=== PATIENT | female | born 1945 | race Caucasian/White ===

== ENCOUNTER → 2024-12-19 11:55 | Outpatient (REF) | payer MEDICARE, OTHER, SELFPAY ==
[2024-12-19 13:01] LABS: Hematocrit 35.9 % (37.0-47.0); Hemoglobin 12.1 g/dL (12.0-16.0); Mean Corp Hgb Conc. 33.7 g/dL (33.0-37.0); Mean Corpuscular Volume 89.1 fL (81.0-99.0); Platelet Count 193 10^3/uL (130-400); Red Blood Cell Count 4.03 10^6/uL (4.20-5.40); Red Cell Dist. Width 14.4 % (11.5-14.5); White Blood Cell Count 6.7 10^3/uL (4.8-10.8)
[2024-12-19 13:33] LABS: Urine Albumin Negative (Neg - Trace); Urine Bilirubin Negative (Negative); Urine Character Clear (Clear); Urine Color Yellow; Urine Glucose Negative (Negative); Urine Ketone Negative (Negative); Urine Leukocyte 3+ (Negative); Urine Nitrite Negative (Negative); Urine Occult Blood Negative (Negative); Urine Specific Gravity 1.015 (<1.030); Urine Urobilinogen Negative (Neg - 1+)
[2024-12-19 13:48] LABS: ALT (SGPT) 14 U/L (0-35); AST (SGOT) 19 U/L (14-36); Albumin 4.5 g/dl (3.5-5.0); Alkaline Phosphatase 81 U/L (38-126); Blood Urea Nitrogen 29 mg/dl (7-17); Calcium 9.5 mg/dl (8.4-10.2); Carbon Dioxide 28 mmol/L (22-30); Chloride 108 mmol/L (98-107); Glucose 102 mg/dl (70-99); HDL Cholesterol 62 mg/dl; LDL Cholesterol, Calculated 97 mg/dl; Potassium 4.6 mmol/L (3.5-5.1); Sodium 142 mmol/L (135-145); Total Bilirubin 0.6 mg/dl (0.2-1.3); Total Cholesterol 181 mg/dl (50-199); Total Protein 6.9 g/dl (6.3-8.2); Triglyceride 114 mg/dl (10-149); Very Low Density Lipoprotein 22 mg/dl (0-30)
[2024-12-19 14:18] LABS: TSH Reflex To Free T4 < 0.02 uIU/ml (0.47-4.68)
[2024-12-19 14:47] LABS: Free T4 2.58 ng/dl (0.78-2.19); Urine Squamous Cell 16-20 /LPF (Few); Urine Urothelial Cell 0-2 /LPF (FEW)
[2024-12-19 14:48] LABS: Urine Amorphous Seen; Urine Red Blood Cell 0-2 /HPF (0-2)
== END ==
LOC: RAD 11:55
PROVIDERS: ATTENDING PHYSICIAN Physician Assistant
DX: M25.511 Pain in right shoulder (principal); M25.512 Pain in left shoulder; M79.644 Pain in right finger(s); Z00.00 Encounter for general adult medical examination without abnormal findings; N18.9 Chronic kidney disease, unspecified; I48.0 Paroxysmal atrial fibrillation; E03.9 Hypothyroidism, unspecified; Z13.220 Encounter for screening for lipoid disorders
CPT/HCPCS: 36415; 73030; 73130; 80053; 80061; 81003; 81015; 84439; 84443; 85027

== ENCOUNTER → 2025-01-14 14:46 | Outpatient (REF) | payer MEDICARE, OTHER, SELFPAY ==
[2025-01-14 16:58] LABS: Free T4 2.66 ng/dl (0.78-2.19)
[2025-01-14 17:12] LABS: TSH < 0.02 uIU/ml (0.47-4.68)
== END ==
LOC: REG 14:46
PROVIDERS: ATTENDING PHYSICIAN Physician Assistant
DX: E03.9 Hypothyroidism, unspecified (principal)
CPT/HCPCS: 36415; 84439; 84443

== ENCOUNTER → 2025-02-05 13:15 | Outpatient (REF) | payer MEDICARE, OTHER, SELFPAY ==
[2025-02-05 15:14] LABS: TSH < 0.02 uIU/ml (0.47-4.68)
== END ==
LOC: REG 13:15
PROVIDERS: ATTENDING PHYSICIAN Physician Assistant
DX: E03.9 Hypothyroidism, unspecified (principal)
CPT/HCPCS: 36415; 84439; 84443

== ENCOUNTER → 2025-02-27 13:55 | Outpatient (REF) | payer MEDICARE, OTHER, SELFPAY ==
[2025-02-27 16:20] LABS: TSH 0.37 uIU/ml (0.47-4.68)
== END ==
LOC: REG 13:55
PROVIDERS: ATTENDING PHYSICIAN Physician Assistant
DX: E03.9 Hypothyroidism, unspecified (principal)
CPT/HCPCS: 36415; 84439; 84443

== ENCOUNTER → 2025-06-26 12:48 | Outpatient (REF) | payer MEDICARE, OTHER, SELFPAY ==
[2025-06-26 14:21] LABS: TSH < 0.02 uIU/ml (0.47-4.68)
== END ==
LOC: REG 12:48
PROVIDERS: ATTENDING PHYSICIAN Physician Assistant
DX: R79.89 Other specified abnormal findings of blood chemistry (principal); R94.6 Abnormal results of thyroid function studies
CPT/HCPCS: 36415; 84439; 84443